=== PATIENT | male | born 1940 | race Caucasian/White ===

== ENCOUNTER → 2016-09-15 | Outpatient (CLI) | payer MEDICARE, OTHER ==
[~2016-09-15] MED LIST: ASPIRIN81 MG PO; COREG25 MG PO; NITROSTAT0.4 MG SL; PRINIVIL20 MG PO; PROTONIX40 MG PO; THERA M PLUS T1 EACH PO; TRICOR145 MG PO; VITAMIN B-121000 MCG PO; VOLTAREN25 MG TOP; ZOCOR40 MG PO
== END | disposition short-term general hospital (02) ==
LOC: CLCARD 08:57
DX: I25.10 Atherosclerotic heart disease of native coronary artery without angina pectoris (principal); I25.5 Ischemic cardiomyopathy; I10 Essential (primary) hypertension; Z79.899 Other long term (current) drug therapy